=== PATIENT | female | born 1955 | race Caucasian/White ===

== ENCOUNTER 2018-11-14 15:49 | Emergency (ER) | payer MEDICAID ==
[~2018-11-14] VITALS: Ht 160 cm; Wt 100.0 kg
[2018-11-14] MEDS ORDERED: LISI-661 PO (15:58)
[2018-11-14] MEDS ORDERED: METF-960 PO (15:58)
[2018-11-14] MEDS ORDERED: ACETAMINOPHEN 325 MG TABLET PO ONE (17:15)
[2018-11-14] MEDS ORDERED: BACITRACIN 0.9 GM PACKET OINTMENT TP ONE (17:15)
[2018-11-14] MEDS ORDERED: PERTUSS(ACELL),DIPH,TET VAC/PF 0.5 ML VIAL IM ONE (17:15)
[2018-11-14] MEDS ORDERED: LIDOCAINE 1% 10 ML VIAL INJ ONE (17:15)
[2018-11-14] MEDS ORDERED: POVIDONE-IODINE 10% 15 ML SOLUTION UD TP ONE (17:15)
[2018-11-14 18:30] VITALS: BP 135/60
== END 2018-11-14 19:10 | disposition home or self-care (01) ==
LOC: EMS 15:50
DX: S91.301A Unspecified open wound, right foot, initial encounter (principal); E11.9 Type 2 diabetes mellitus without complications; I10 Essential (primary) hypertension; Z79.899 Other long term (current) drug therapy; Z79.84 Long term (current) use of oral hypoglycemic drugs; W26.0XXA Contact with knife, initial encounter; Y93.G3 Activity, cooking and baking; Y92.89 Other specified places as the place of occurrence of the external cause; Y99.8 Other external cause status
CPT/HCPCS: 12002; 82962; 90471; 90715; 99283; J3490

== ENCOUNTER 2018-11-21 15:41 | Emergency (ER) | payer MEDICAID ==
[~2018-11-21] VITALS: Ht 160 cm; Wt 100.0 kg
[~2018-11-21 15:41] MED LIST: LISI-661 PO; METF-960 PO
[2018-11-21 16:45] VITALS: BP 132/76
== END 2018-11-21 16:51 | disposition home or self-care (01) ==
LOC: EMS 15:42
DX: S91.311D Laceration without foreign body, right foot, subsequent encounter (principal); I10 Essential (primary) hypertension; F32.9 Major depressive disorder, single episode, unspecified; Z79.899 Other long term (current) drug therapy; Z79.84 Long term (current) use of oral hypoglycemic drugs; W26.0XXD Contact with knife, subsequent encounter

== ENCOUNTER 2020-03-16 11:03 | Emergency (ER) | payer MEDICAID ==
[~2020-03-16] VITALS: Ht 157.5 cm; Wt 104.0 kg
[~2020-03-16 11:03] MED LIST changes: +IBUP-2070 PO; +NOCURR
[2020-03-16] MEDS ORDERED: KETOROLAC TROMETHAMINE 30 MG/ML VIAL IM ONE (12:45)
[2020-03-16 13:03] VITALS: BP 131/66
== END 2020-03-16 13:25 | disposition home or self-care (01) ==
LOC: EMS 11:05
DX: M25.511 Pain in right shoulder (principal); R07.81 Pleurodynia; E11.9 Type 2 diabetes mellitus without complications; I10 Essential (primary) hypertension; Z79.84 Long term (current) use of oral hypoglycemic drugs; Z79.899 Other long term (current) drug therapy
CPT/HCPCS: 29105; 71046; 73030; 82962; 96372; 99284; J1885

== ENCOUNTER 2021-04-01 08:19 | Emergency (ER) | payer MEDICAID ==
[~2021-04-01] VITALS: Ht 157.5 cm; Wt 100.0 kg
[~2021-04-01 08:19] MED LIST changes: -LISI-661 PO; +LISI-893 PO; -NOCURR
[2021-04-01 08:21] VITALS: BP 158/96
[2021-04-01] MEDS ORDERED: IBUPROFEN 600 MG TABLET PO ONE (08:45)
[2021-04-01] MEDS ORDERED: HYDROCODONE/ACETAMINOPHEN 5-325 MG TABLET PO ONE (08:45)
[2021-04-01] MEDS ORDERED: LIDOCAINE 5% TRANSDERMAL PATCH TD ONE (08:45)
[2021-04-01] MEDS ORDERED: CYCLOBENZAPRINE HCL 10 MG TABLET PO ONE (08:45)
== END 2021-04-01 09:05 | disposition home or self-care (01) ==
LOC: EMS 08:22
DX: M43.6 Torticollis (principal)
CPT/HCPCS: 82962; 99284

== ENCOUNTER 2023-01-30 12:17 | Emergency (ER) | payer MEDICAID ==
[~2023-01-30] VITALS: Ht 160 cm; Wt 100.0 kg
[~2023-01-30 12:17] MED LIST changes: +IBUP-1492 PO; -IBUP-2070 PO; +METF-1211 PO; -METF-960 PO
[2023-01-30 12:20] VITALS: BP 161/76
[2023-01-30] MEDS ORDERED: ACETAMINOPHEN/CODEINE 300-30 MG TABLET PO ONE (12:30)
[2023-01-30] MEDS ORDERED: LISI30TA4 PO (12:30)
[2023-01-30] MEDS ORDERED: EMPA25TA3 PO (12:30)
[2023-01-30] MEDS ORDERED: PARO10TA71 PO (12:30)
[2023-01-30] MEDS ORDERED: ATOR40TA71 PO (12:30)
[2023-01-30] MEDS ORDERED: SEMA0.258 SQ (12:30)
[2023-01-30] MEDS ORDERED: HYDR25TA PO (12:30)
[2023-01-30] MEDS ORDERED: IBUP-45 PO (14:20)
[2023-01-30] MEDS ORDERED: HYDR-4072 PO (14:20)
== END 2023-01-30 15:20 | disposition home or self-care (01) ==
LOC: EMS 12:17
DX: S92.401A Displaced unspecified fracture of right great toe, initial encounter for closed fracture (principal); S63.501A Unspecified sprain of right wrist, initial encounter; S80.01XA Contusion of right knee, initial encounter; S20.219A Contusion of unspecified front wall of thorax, initial encounter; E11.65 Type 2 diabetes mellitus with hyperglycemia; I10 Essential (primary) hypertension; W01.0XXA Fall on same level from slipping, tripping and stumbling without subsequent striking against object, initial encounter; Y93.89 Activity, other specified; Y92.89 Other specified places as the place of occurrence of the external cause; Y99.8 Other external cause status
CPT/HCPCS: 71101; 99284; 73110-TC; 73130-TC; 73562-TC; 73660-TC; Z7502; Z7610